=== PATIENT | male | born 1985 | race African-American/Black ===

== ENCOUNTER 2016-10-17 12:31 | Emergency (ER) | payer BC ==
[2016-10-17 12:43] VITALS: BP 134/76
[2016-10-17] MEDS ORDERED: Ondansetron ODT TAB* 4 MG PO ONE (12:46)
--- NOTE | 2016-10-17 12:58 | UC ---
UC General HPI - HPI Summary HPI Summary: Patient has had three days of dizzyness, room is spinning, and nausea. He has been working over time the past few weeks and feels like stress is contributing to his ill feeling. - History of Current Complaint Chief Complaint: UCDizziness Stated Complaint: DIZZINESS,VOMITING Time Seen by Provider: 10/17/16 12:46 Hx Obtained From: Patient Onset/Duration: Sudden Onset, Lasting Days Timing: Constant Onset Severity: Mild Current Severity: Moderate Associated Signs & Symptoms: Positive: Dizziness, Headache, Nausea - Allergy/Home Medications Allergies/Adverse Reactions: Allergies Allergy/AdvReac Type Severity Reaction Status Date / Time seasonal Allergy Eyes Uncoded 10/17/16 12:43 Itchy/Swollen/Red/Watery PMH/Surg Hx/FS Hx/Imm Hx Previously Healthy: Yes - Surgical History Surgical History: Yes Surgery Procedure, Year, and Place: neck tumor as - Family History Known Family History: Negative: Cardiac Disease, Hypertension, Diabetes - Social History Alcohol Use: None Substance Use Type: None Smoking Status (MU): Never Smoked Tobacco Type: eCigarettes Review of Systems Constitutional: Fatigue Skin: Negative Eyes: Negative ENT: Negative Respiratory: Negative Cardiovascular: Negative Gastrointestinal: Vomiting, Nausea Genitourinary: Negative Motor: Negative Musculoskeletal: Negative Neurological: Headache, Other - dizziness Psychological: Negative All Other Systems Reviewed And Are Negative: Yes Physical Exam Triage Information Reviewed: Yes Appearance: Well-Appearing, Well-Nourished, Ill-Appearing Vital Signs: Initial Vital Signs Temp 98.5 F 10/17/16 12:38 Pulse 83 10/17/16 12:38 Resp 16 10/17/16 12:38 BP 134/76 10/17/16 12:38 Pulse Ox 98 10/17/16 12:38 Vital Signs Reviewed: Yes Eye Exam: Normal ENT Exam: Normal Dental Exam: Normal Neck exam: Normal Respiratory Exam: Normal Respiratory: Positive: Chest non-tender, Lungs clear, Normal breath sounds Cardiovascular Exam: Normal Cardiovascular: Positive: RRR, No Murmur, Pulses Normal Abdominal Exam: Normal Abdomen Description: Positive: Nontender, No Organomegaly, Soft, CVA Tenderness (R) - neg, CVA Tenderness (L) - neg Bowel Sounds: Positive: Present Musculoskeletal Exam: Normal Neurological Exam: Normal - neg rhomberg, PERRLA, EOMI, cranial nerves intact Psychological Exam: Normal Skin Exam: Normal Course/Dx - Course Course Of Treatment: hx obtained, exam performed ,meds reviewed, treated for vertigo, recommend rest. - Differential Dx - Multi-Symptom Provider Diagnoses: vertigo. stress related fatique Discharge - Discharge Plan Condition: Stable Disposition: HOME Prescriptions: Meclizine TAB* [Antivert 12.5 TAB*] 25 mg PO TID PRN #21 tab PRN Reason: Dizziness Patient Education Materials: Vertigo (ED), Stress (ED) Additional Instructions: 1. get plenty of rest 2. [place] diet and increase your fluid intake 3. take the medication as prescribed.
== END 2016-10-17 13:17 | disposition home or self-care (01) ==
LOC: UCCORT 12:31
DX: R42 Dizziness and giddiness (principal); R53.83 Other fatigue; Z73.3 Stress, not elsewhere classified
CPT/HCPCS: 99212; A9270-GY; G0463

== ENCOUNTER 2017-08-08 10:10 | Emergency (ER) | payer BC ==
[2017-08-08 10:26] VITALS: BP 127/95
--- NOTE | 2017-08-08 10:46 | UC ---
Throat Pain/Nasal Fan HPI - HPI Summary HPI Summary: Congestion, mouth pain, lip pain and vertigo since this last weekend. He had vertigo about 1yr ago. He had ringing in the ears Sunday. No hearing loss. No fever or headaches. He has no FH of vertigo. - History of Current Complaint Chief Complaint: UCGeneralIllness Stated Complaint: DIZZY/VOMITING/ST Time Seen by Provider: 08/08/17 10:21 Hx Obtained From: Patient Onset/Duration: Gradual Onset, Lasting Days Severity: Moderate Pain Intensity: 0 Cough: None Associated Signs & Symptoms: Positive: Other - Upper lip rash and irritation and upper roof irritation and lesions. - Allergies/Home Medications Allergies/Adverse Reactions: Allergies Allergy/AdvReac Type Severity Reaction Status Date / Time seasonal Allergy Eyes Uncoded 08/08/17 10:26 Itchy/Swollen/Red/Watery PMH/Surg Hx/FS Hx/Imm Hx Previously Healthy: No - vertigo. - Surgical History Surgical History: Yes Surgery Procedure, Year, and Place: neck tumor as - Family History Known Family History: Negative: Cardiac Disease, Hypertension, Diabetes - Social History Occupation: Employed Full-time Alcohol Use: None Substance Use Type: None Smoking Status (MU): Never Smoked Tobacco Type: eCigarettes Review of Systems Skin: Rash ENT: Other - oral irritation Neurological: Other - vertigo. All Other Systems Reviewed And Are Negative: Yes Physical Exam Triage Information Reviewed: Yes Appearance: Well-Appearing, No Pain Distress, Well-Nourished Vital Signs: Initial Vital Signs Temp 97.9 F 08/08/17 10:20 Pulse 81 08/08/17 10:20 Resp 18 08/08/17 10:20 BP 127/95 08/08/17 10:20 Pulse Ox 100 08/08/17 10:20 Eye Exam: Normal Eyes: Positive: Conjunctiva Clear. Negative: Conjunctiva Inflamed ENT: Positive: TMs normal, Uvula midline. Negative: Pharynx normal - There are vesicles of the left upper lip and left upper anterior roof of the mouth., Pharyngeal erythema, Nasal congestion, TM bulging, TM dull, TM red, Tonsillar swelling, Tonsillar exudate, Trismus, Muffled voice, Sinus tenderness Neck: Positive: Supple, Nontender, No Lymphadenopathy. Negative: Nuchal Rigidity Respiratory Exam: Normal Respiratory: Positive: Chest non-tender, Lungs clear, Normal breath sounds, No respiratory distress, No accessory muscle use. Negative: Respiratory distress, Decreased breath sounds, Accessory muscle use, Crackles Cardiovascular: Positive: No Murmur, Pulses Normal, Brisk Capillary Refill Abdomen Description: Positive: No Organomegaly, Soft. Negative: Distended, Guarding Musculoskeletal: Positive: Strength Intact, ROM Intact, No Edema Neurological Exam: Other - CN III-XII intact. Finger to nose, heel to ace intact, toe to heel walk, and rhomberg neg. Neurological: Positive: Alert, Muscle Tone Normal, Fatigued Psychological: Positive: Age Appropriate Behavior Skin: Negative: rashes Throat Pain/Nasal Course/Dx - Course Assessment/Plan: Pt agrees to find pcp and if this happens again, he will need a referral to ENT for vertigo testing. - Differential Dx/Diagnosis Provider Diagnoses: vertigo. oral herpes. uri. Discharge - Sign-Out/Discharge Documenting (check all that apply): Discharge/Admit/Transfer - Discharge Plan Condition: Good Disposition: HOME Prescriptions: Meclizine TAB* [Antivert 12.5 TAB*] 25 mg PO TID PRN #30 tab PRN Reason: Vertigo Patient Education Materials: Vertigo (ED), Upper Respiratory Infection (ED), Oral Herpes Simplex Virus Infections (ED) Forms: *Work Release Referrals: [facility] [Outside] No Primary Care Phys,NOPCP [Primary Care Provider] - - Billing Disposition and Condition Condition: GOOD Disposition: HOME
== END 2017-08-08 10:45 | disposition home or self-care (01) ==
LOC: UCCORT 10:10
DX: B00.89 Other herpesviral infection (principal); F17.290 Nicotine dependence, other tobacco product, uncomplicated; R42 Dizziness and giddiness
CPT/HCPCS: 99212; G0463

== ENCOUNTER 2017-09-02 12:18 | Emergency (ER) | payer BC ==
[2017-09-02 15:08] VITALS: BP 125/71
--- NOTE | 2017-09-02 15:53 | UC ---
Upper Extremity HPI - HPI Summary HPI Summary: c/o of shooting pain on right arm on and off for the past 2-3 years, states this time around started 3 days ago. Pain lasts for about 3 minutes, then it resolves spontaneously. It happens several times a day, every few hours. He denies any triggers, states there is no pain in between. He is very muscular and states he works out regularly, but that does not appear to trigger the pain. Denies chills, fever, fatigue or radiation to elbow or hand. He occasionally has cramps in his hands. He states he is on his way to [facility] and this is the first time it gets addressed. He has a physician there. Denies ETOH , tobacco, drugs. Denies burning or numbness - History of Current Complaint Chief Complaint: UCUpperExtremity Stated Complaint: BACK AND ARM PAIN Time Seen by Provider: 09/02/17 15:33 Hx Obtained From: Patient Onset/Duration: Sudden Onset, Lasting Weeks Severity Initially: Mild Severity Currently: Severe Pain Intensity: 9 Location Of Pain: Is Discrete @ - right arm biceps area Character: Sharp Aggravating Factor(s): Nothing Alleviating Factor(s): Nothing Associated Signs And Symptoms: Positive: Negative - Risk Factors Non-Orthopedic Risk Factor: Negative DVT Risk Factors: Negative Septic Arthritis Risk Factor: Negative - Allergies/Home Medications Allergies/Adverse Reactions: Allergies Allergy/AdvReac Type Severity Reaction Status Date / Time seasonal Allergy Eyes Uncoded 09/02/17 15:07 Itchy/Swollen/Red/Watery PMH/Surg Hx/FS Hx/Imm Hx Previously Healthy: Yes - Surgical History Surgical History: Yes Surgery Procedure, Year, and Place: neck tumor as - Family History Known Family History: Negative: Cardiac Disease, Hypertension, Diabetes - Social History Alcohol Use: Occasionally Substance Use Type: None Smoking Status (MU): Never Smoked Tobacco Type: eCigarettes Review of Systems Musculoskeletal: Myalgia All Other Systems Reviewed And Are Negative: Yes Physical Exam Triage Information Reviewed: Yes Appearance: Well-Appearing, No Pain Distress, Well-Nourished Vital Signs: Initial Vital Signs Temp 98.6 F 09/02/17 15:02 Pulse 80 09/02/17 15:02 Resp 20 09/02/17 15:02 BP 125/71 09/02/17 15:02 Pulse Ox 99 09/02/17 15:02 Eyes: Positive: Conjunctiva Clear ENT: Positive: Pharynx normal, TMs normal Neck: Positive: Supple, Nontender, No Lymphadenopathy Respiratory: Positive: Chest non-tender, Lungs clear, Normal breath sounds, No respiratory distress Cardiovascular: Positive: RRR, No Murmur, Pulses Normal, Brisk Capillary Refill Abdomen Description: Positive: Nontender Musculoskeletal Exam: Other Musculoskeletal: Positive: Strength Intact, ROM Intact, No Edema - no impingement sign, Villeda is negative, empty can test negative, ulnar and radial pulses present, no distal edema, hypothenar/thenar eminences are symmetric compared to opposite hand, sensory is intact, FROM on wrist/hand and shoulder negative. grasp negative Neurological: Positive: Alert, Muscle Tone Normal Upper Extremity Course/Dx - Course Course Of Treatment: chronic short-lived intermittent pain right arm, patient states he is on his way back to [facility], to follow up with PCP for possible EMG and testing for etiology of pain. Currently he does not have pain, last episode was yesterday. - Differential Dx/Diagnosis Provider Diagnoses: Pain right arm Discharge - Sign-Out/Discharge Documenting (check all that apply): Discharge/Admit/Transfer - Discharge Plan Condition: Stable Disposition: HOME Patient Education Materials: Paresthesia (ED), Arm Pain (ED) Forms: *Work Release Referrals: [facility] [Outside] No Primary Care Phys,NOPCP [Primary Care Provider] - - Billing Disposition and Condition Condition: STABLE Disposition: Home
== END 2017-09-02 15:51 | disposition home or self-care (01) ==
LOC: UCCORT 12:18
DX: M79.601 Pain in right arm (principal); Z91.09 Other allergy status, other than to drugs and biological substances
CPT/HCPCS: 99211; G0463

== ENCOUNTER 2017-11-28 20:09 | Emergency (ER) | payer BC ==
[2017-11-28 20:39] VITALS: BP 144/81
[2017-11-28] MEDS ORDERED: DOXYcycline CAP(*) 100 MG PO ONE (20:59)
--- NOTE | 2017-11-28 21:01 | ED ---
Skin Complaint - HPI Summary HPI Summary: 32 yr old with cold sore corner left side of mouth for two days. Also a 1 cm swelling under chin in midline in his lemon that is tender. He denies sore throat. - History of Current Complaint Chief Complaint: UCSkin Time Seen by Provider: 11/28/17 20:41 Stated Complaint: SWELLING CHIN Pain Intensity: 0 - Allergy/Home Medications Allergies/Adverse Reactions: Allergies Allergy/AdvReac Type Severity Reaction Status Date / Time seasonal Allergy Eyes Uncoded 11/28/17 20:34 Itchy/Swollen/Red/Watery PMH/Surg Hx/FS Hx/Imm Hx - Surgical History Surgery Procedure, Year, and Place: neck tumor as infant Infectious Disease History: No Infectious Disease History: Denies: Traveled Outside the [place] in Last 30 Days - Family History Known Family History: Positive: None Negative: Cardiac Disease, Hypertension, Diabetes - Social History Alcohol Use: Occasionally Substance Use Type: Reports: None Smoking Status (MU): Never Smoked Tobacco Type: eCigarettes Review of Systems Positive: Other - cold sore left corner mouth, and under chin in midline has small follicle inflamed. All Other Systems Reviewed And Are Negative: Yes Physical Exam Triage Information Reviewed: Yes Vital Signs On Initial Exam: Initial Vitals Temp Pulse Resp BP Pulse Ox 98.9 F 82 15 144/81 100 11/28/17 20:35 11/28/17 20:35 11/28/17 20:35 11/28/17 20:35 11/28/17 20:35 Vital Signs Reviewed: Yes Appearance: Positive: Well-Appearing, No Pain Distress Skin: Positive: Warm, Skin Color Reflects Adequate Perfusion Head/Face: Positive: Normal Head/Face Inspection Eyes: Positive: EOMI ENT: Positive: Normal ENT inspection, Pharynx normal, Other - scar on left side of neck from his prior surgery. He has a small 1 cm size follicle that is tender and consitent with folliculitis. No abscess. There is a hepetic type ulcer angle mouth left side. Dental: Negative: Gross Decay/Caries @, Cervical Lymphadenopathy Neck: Positive: Supple, Nontender Respiratory/Lung Sounds: Positive: Clear to Auscultation, Breath Sounds Present Cardiovascular: Positive: RRR. Negative: Murmur Abdomen Description: Positive: Nontender Musculoskeletal: Positive: Strength/ROM Intact Neurological: Positive: Sensory/Motor Intact, Alert, Oriented to Person Place, Time, CN Intact II-III, Normal Gait, Speech Normal Psychiatric: Positive: Normal - [place] Coma Scale Best Eye Response: 4 - Spontaneous Best Motor Response: 6 - Obeys Commands Best Verbal Response: 5 - Oriented Coma Scale Total: 15 Diagnostics - Vital Signs Vital Signs Temp Pulse Resp BP Pulse Ox 11/28/17 20:35 98.9 F 82 15 144/81 100 - Laboratory Lab Statement: Any lab studies that have been ordered have been reviewed, and results considered in the medical decision making process. Course/Dx - Course Course Of Treatment: 32 yr old with folliculitis and also herpes labialis. Plan valtrex and doxy. - Diagnoses Provider Diagnoses: Folliculitis, Herpes labialis Discharge - Sign-Out/Discharge Documenting (check all that apply): Patient Departure All imaging exams completed and their final reports reviewed: No Studies - Discharge Plan Condition: Good Disposition: HOME Prescriptions: DOXYcycline CAP(*) [DOXYcycline 100MG CAP(*)] 100 mg PO BID #20 cap ValACYclovir (*) [Valtrex 1 GM(*)] 1 gm PO BID #14 tab Patient Education Materials: Oral Herpes Simplex Virus Infections (ED), Folliculitis (ED), Hypertension (ED) Referrals: No Primary Care Phys,NOPCP [Primary Care Provider] - [facility] [facility] [Outside] - Billing Disposition and Condition Condition: GOOD Disposition: Home
== END 2017-11-28 21:15 | disposition home or self-care (01) ==
LOC: UCCORT 20:09
DX: B00.1 Herpesviral vesicular dermatitis (principal); L73.9 Follicular disorder, unspecified
CPT/HCPCS: 99212; A9270-GY; G0463

== ENCOUNTER 2018-01-10 17:55 | Emergency (ER) | payer BC, OTHER ==
[2018-01-10 19:10] VITALS: BP 143/78
--- NOTE | 2018-01-10 20:10 | ED ---
Back Pain - HPI Summary HPI Summary: 32 yr old male with low back pain. 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 He complains of pain low back, worse with twisting and side to side motion. No other complaints. no bowel or bladder incontinence. No numbness genitalia or anal area. No focal weakness or numbness. - History of Current Complaint Chief Complaint: UCGeneralIllness Stated Complaint: BACK PAIN (WC) Time Seen by Provider: 01/10/18 19:16 Pain Intensity: 8 - Allergies/Home Medications Allergies/Adverse Reactions: Allergies Allergy/AdvReac Type Severity Reaction Status Date / Time seasonal Allergy Eyes Uncoded 01/10/18 19:03 Itchy/Swollen/Red/Watery Home Medications: Home Medications Dm/PE/Acetaminophen/Doxylamine [Daytime-Nighttime Cold-Flu] 2 each PO ONCE PRN 01/10/18 [History Confirmed 01/10/18] PMH/Surg Hx/FS Hx/Imm Hx Previously Healthy: Yes Musculoskeletal History: Denies: Hx Scoliosis Neurological History: Denies: Hx Headaches, Other Neuro Impairments/Disorders - Surgical History Surgery Procedure, Year, and Place: neck tumor as Infectious Disease History: No Infectious Disease History: Denies: Traveled Outside the [place] in Last 30 Days - Family History Known Family History: Positive: None Negative: Cardiac Disease, Hypertension, Diabetes - Social History Alcohol Use: Occasionally Substance Use Type: Reports: None Smoking Status (MU): Never Smoked Tobacco Type: eCigarettes Review of Systems Constitutional: Negative Positive: Other - back pain All Other Systems Reviewed And Are Negative: Yes Physical Exam Triage Information Reviewed: Yes Vital Signs On Initial Exam: Initial Vitals Temp Pulse Resp BP Pulse Ox 98.8 F 80 14 143/78 100 01/10/18 19:06 01/10/18 19:06 01/10/18 19:06 01/10/18 19:06 01/10/18 19:06 Vital Signs Reviewed: Yes Appearance: Positive: Well-Appearing, No Pain Distress Skin: Positive: Warm, Skin Color Reflects Adequate Perfusion Head/Face: Positive: Normal Head/Face Inspection Eyes: Positive: EOMI Neck: Positive: Nontender Respiratory/Lung Sounds: Positive: Clear to Auscultation, Breath Sounds Present Cardiovascular: Positive: RRR. Negative: Murmur Abdomen Description: Positive: Nontender Musculoskeletal: Positive: Strength/ROM Intact Neurological: Positive: Sensory/Motor Intact, Alert, Oriented to Person Place, Time, CN Intact II-III Psychiatric: Positive: Normal - [place] Coma Scale Best Eye Response: 4 - Spontaneous Best Motor Response: 6 - Obeys Commands Best Verbal Response: 5 - Oriented Coma Scale Total: 15 Diagnostics - Vital Signs Vital Signs Temp Pulse Resp BP Pulse Ox 01/10/18 19:06 98.8 F 80 14 143/78 100 - Laboratory Lab Statement: Any lab studies that have been ordered have been reviewed, and results considered in the medical decision making process. Back Pain Course/Dx - Course Course Of Treatment: 32 yr old male with low back strain. DC home on motrin. Note for work until Sunday - Diagnoses Provider Diagnoses: Lumbar strain Discharge - Sign-Out/Discharge Documenting (check all that apply): Patient Departure All imaging exams completed and their final reports reviewed: No - Discharge Plan Condition: Good Disposition: HOME Prescriptions: Ibuprofen TAB* [Motrin TAB* 600 MG] 600 mg PO Q8H PRN #20 tab PRN Reason: Pain Patient Education Materials: Low Back Strain (ED), Hypertension (ED) Referrals: No Primary Care Phys,NOPCP [Primary Care Provider] - Andrew Yadav MD [Medical Doctor] - If Needed - Billing Disposition and Condition Condition: GOOD Disposition: Home
--- NOTE | 2018-01-11 07:48 | RAD ---
INDICATION: Back pain. COMPARISON: None. TECHNIQUE: 5 views of the lumbar spine were obtained. FINDINGS: The vertebra are in normal alignment. No fracture is seen. Disc spaces appear maintained. IMPRESSION: No evidence of fracture or subluxation. R0
--- NOTE | 2018-01-11 10:08 | ED ---
Progress - Progress Note Progress Note: radiology reading reviewed, NAD, and no change in plan Course/Dx - Course Course Of Treatment: 32 yr old male with low back strain. DC home on motrin. Note for work until Sunday - Diagnoses Provider Diagnoses: Lumbar strain Discharge - Sign-Out/Discharge Documenting (check all that apply): Patient Departure All imaging exams completed and their final reports reviewed: Yes - Discharge Plan Condition: Good Disposition: HOME Prescriptions: Ibuprofen TAB* [Motrin TAB* 600 MG] 600 mg PO Q8H PRN #20 tab PRN Reason: Pain Patient Education Materials: Low Back Strain (ED), Hypertension (ED) Forms: *Work Release Referrals: Andrew Yadav MD [Medical Doctor] - If Needed No Primary Care Phys,NOPCP [Primary Care Provider] - - Billing Disposition and Condition Condition: GOOD Disposition: Home
== END 2018-01-10 20:33 | disposition home or self-care (01) ==
LOC: UCCORT 17:55
DX: S39.012A Strain of muscle, fascia and tendon of lower back, initial encounter (principal); J30.2 Other seasonal allergic rhinitis; Y93.72 Activity, wrestling; Y92.9 Unspecified place or not applicable
CPT/HCPCS: 72110; 99212; G0463

== ENCOUNTER 2018-01-10 17:55 | Emergency (ER) | payer BC, OTHER ==
[2018-01-10 19:25] VITALS: BP 143/78
--- NOTE | 2018-01-10 20:25 | ED ---
Throat Pain/Nasal Congestion - HPI Summary HPI Summary: 32 yr old male with the complaint of runny nose, sore throat, cough, fatigue. Onset over the past couple of days. No fever. - History of Current Complaint Chief Complaint: UCGeneralIllness Time Seen by Provider: 01/10/18 19:27 - Allergies/Home Medications Allergies/Adverse Reactions: Allergies Allergy/AdvReac Type Severity Reaction Status Date / Time seasonal Allergy Eyes Uncoded 01/10/18 19:03 Itchy/Swollen/Red/Watery PMH/Surg Hx/FS Hx/Imm Hx - Surgical History Surgery Procedure, Year, and Place: neck tumor as infant Infectious Disease History: No Infectious Disease History: Denies: Traveled Outside the [place] in Last 30 Days - Family History Known Family History: Positive: None Negative: Cardiac Disease, Hypertension, Diabetes - Social History Occupation: Employed Full-time Alcohol Use: Occasionally Substance Use Type: Reports: None Smoking Status (MU): Never Smoked Tobacco Type: eCigarettes Review of Systems Constitutional: Negative Positive: Fatigue Positive: Sore Throat, Nasal Discharge Positive: Cough Positive: Myalgia All Other Systems Reviewed And Are Negative: Yes Physical Exam Triage Information Reviewed: Yes Vital Signs On Initial Exam: Initial Vitals Temp Pulse Resp BP Pulse Ox 98.8 F 80 14 143/78 100 01/10/18 19:18 01/10/18 19:18 01/10/18 19:18 01/10/18 19:18 01/10/18 19:18 Vital Signs Reviewed: Yes Appearance: Positive: Well-Appearing, No Pain Distress Skin: Positive: Warm, Skin Color Reflects Adequate Perfusion Head/Face: Positive: Normal Head/Face Inspection Eyes: Positive: EOMI ENT: Positive: Normal ENT inspection Neck: Positive: Nontender Respiratory/Lung Sounds: Positive: Clear to Auscultation, Breath Sounds Present Cardiovascular: Positive: RRR. Negative: Murmur Abdomen Description: Positive: Nontender Musculoskeletal: Positive: Strength/ROM Intact Neurological: Positive: Sensory/Motor Intact, Alert, Oriented to Person Place, Time, CN Intact II-III, Normal Gait, Finger to Nose Psychiatric: Positive: Normal - [place] Coma Scale Best Eye Response: 4 - Spontaneous Best Motor Response: 6 - Obeys Commands Best Verbal Response: 5 - Oriented Coma Scale Total: 15 Diagnostics - Vital Signs Vital Signs Temp Pulse Resp BP Pulse Ox 01/10/18 19:18 98.8 F 80 14 143/78 100 - Laboratory Lab Results: Lab Results 01/10/18 Range/Units 20:06 Influenza A (Rapid) Negative (Negative) Influenza B (Rapid) Negative (Negative) Lab Statement: Any lab studies that have been ordered have been reviewed, and results considered in the medical decision making process. EENT Course/Dx - Course Course Of Treatment: 32 yr old male with URI symptoms. DC home. - Diagnoses Provider Diagnoses: Upper respiratory infection Discharge - Sign-Out/Discharge Documenting (check all that apply): Patient Departure All imaging exams completed and their final reports reviewed: No Studies - Discharge Plan Condition: Good Disposition: HOME Patient Education Materials: Upper Respiratory Infection (ED), Hypertension (ED ) Referrals: No Primary Care Phys,NOPCP [Primary Care Provider] - [facility] [place] [facility] [Outside] - 2 Days - Billing Disposition and Condition Condition: GOOD Disposition: Home
== END 2018-01-10 20:32 | disposition home or self-care (01) ==
LOC: UCCORT 17:55
DX: J06.9 Acute upper respiratory infection, unspecified (principal); J30.2 Other seasonal allergic rhinitis
CPT/HCPCS: 99211; G0463